=== PATIENT | male | born 1950 | race Caucasian/White ===

== ENCOUNTER → 2017-11-15 | Outpatient (CLI) | payer MEDICARE ==
[~2017-11-15] VITALS: Ht 182.9 cm; Wt 89.4 kg
[~2017-11-15] MED LIST: CATHETER FLUSH 10 ML SYR IV PRN; LISI40TA PO; METF-380 PO; REGADENOSON 0.4 MG/5 ML SYR (LEXISCAN) IV ONE; SIMV40TA4 PO
[2017-11-15 07:55] VITALS: BP 143/82
[2017-11-15 08:18] VITALS: BP 130/74
--- NOTE | 2017-11-20 15:29 | STRESS TEST ---
DATE OF SERVICE: 11/15/2017 RESTING AND POST REGADENOSON TECHNETIUM-99M TETROFOSMIN SPECT CT IMAGING ORDERING PHYSICIAN: Christianne Villanueva APRN PRIMARY CARE PHYSICIAN: Andreia Boyer APRN OTHER PHYSICIAN: Dr. Poole. CLINICAL DIAGNOSIS: Chest discomfort. Baseline images were carried out after injection of 10.91 mCi of technetium-99m Tetrofosmin. This was followed by 0.4 mg of regadenoson and 33 mCi of technetium-99m Tetrofosmin for stress imaging. The electrocardiogram showed sinus rhythm with isolated premature ventricular contractions. Early repolarization is seen on the electrocardiogram. The electrocardiogram did not change significantly with the regadenoson infusion. Review of images at rest and following stress indicates a basal inferior perfusion defect, which appears predominantly fixed. Gated images show basal inferior hypokinesis. Left ventricular ejection fraction is calculated to be 41%. CONCLUSIONS: 1. Basal inferior infarction with a small amount of frank-infarct ischemia suggested on this study. 2. Basal inferior hypokinesis. 3. Left ventricular ejection fraction is calculated to be of 45%. Job ID: [id number] DocumentID: [id number] Dictated Date: 11/20/2017 13:05:08 Senior Training Specialist Date: 11/20/2017 15:28:05 Dictated By: YENNI POOLE MD, MA, FACP, FACC,
== END ==
LOC: CARD 06:57
PROVIDERS: ATTEND Nurse Practitioner Family
DX: I10 Essential (primary) hypertension (principal); E11.9 Type 2 diabetes mellitus without complications; R07.89 Other chest pain; E78.5 Hyperlipidemia, unspecified; I77.89 Other specified disorders of arteries and arterioles
CPT/HCPCS: 78452; 93017

== ENCOUNTER → 2018-07-30 | Outpatient (CLI) | payer MEDICARE, OTHER ==
[~2018-07-30] MED LIST changes: -CATHETER FLUSH 10 ML SYR IV PRN; +IOHEXOL 350 MG/ML 100 ML (OMNIPAQUE 350) VIAL IV ONE; -LISI40TA PO; -METF-380 PO; +NS 100 ML (IVPB) BAG IV ONE; +RECEIVED CONTRAST (Hold Metformin) IV SCH; -REGADENOSON 0.4 MG/5 ML SYR (LEXISCAN) IV ONE; -SIMV40TA4 PO
[2018-07-30 11:12] LABS: BUN/CREATININE RATIO 21; CREATININE SERUM 1.15 MG/DL (0.60-1.30); GFR ESTIMATED > 60
--- NOTE | 2018-07-30 12:24 | Diagnostic Imaging Report ---
PROCEDURE: CT sinuses without contrast TECHNIQUE: Multiple contiguous axial images were obtained through the sinuses without the use of intravenous contrast. Coronal and sagittal reformations were then performed. INDICATION: Chronic sinusitis. COMPARISON: None. FINDINGS: Postoperative findings of bilateral maxillary antrostomies, ethmoidectomies and middle turbinectomies. There is mild mucosal thickening in the floor of the left maxillary sinus. The paranasal sinuses are otherwise clear. Moderate leftward bowing of the nasal septum with spur. No large periapical lucencies about the maxillary dentition. The mastoids and middle ears are clear. Skull base is intact. Normal alignment of the temporomandibular joints. IMPRESSION: Postoperative changes of bilateral maxillary antrostomies, middle turbinectomies and ethmoidectomies. There is mild residual mucosal thickening in the floor of the left maxillary sinus. The paranasal sinuses are otherwise clear. Dictated by: Dictated on workstation # [id number]
--- NOTE | 2018-07-30 12:49 | Diagnostic Imaging Report ---
PROCEDURE: CT neck soft tissue with contrast. TECHNIQUE: Multiple contiguous axial images were obtained through the neck after the administration of contrast. INDICATION: Parotid mass. FINDINGS: The previous CT neck exam of 08/05/2012 noted a 4 mm soft tissue mass along the posterior aspect of the left parotid gland. This is felt to be related to an intraparotid lymph node. Reportedly this lesion was subsequently biopsied on 08/27/2012. The results of the biopsy are not known to me. On this exam that nodule is again identified and does not appear to have changed significantly. The nodule is estimated to be approximately 5 mm. There is no other evidence for an intraparotid nodule on the left. There is also a small 5 mm nodule in the soft tissues adjacent to the right parotid gland. This was present on the prior exam and has not changed significantly. There are a few other small subcentimeter nodules on each side of the neck. There is no mass identified. There is a suggestion of a 13 mm nodule along the inferior pole of the right lobe of the thyroid. This was also present on the prior exam at which time it measured 11 mm. The relative stability of this finding over a nearly six year period would suggest it is a benign process. The lung apices and the intracranial contents, where visualized are unremarkable for an acute abnormality. The reconstructed sagittal images show that there is severe degenerative disc and bony disease at C4-5, C5-6 and C6-7. There also appears to be central stenosis at these three levels with the C6-7 level the most severely affected. IMPRESSION: 1. The small left intraparotid lymph node seen on the previous exam in 2012 is again evident and does not appear to have changed significantly. 2. There are a few other subcentimeter nodes on each side of the neck. These seem similar to the prior exam as well. 3. The low density nodule in the inferior pole of the right lobe of the thyroid noted on the prior exam is minimally larger on this study. This nodule is most likely a benign process however. 4. There severe degenerative disc and bony disease at C4-5, C5-6 and C6-7. Dictated by: Dictated on workstation # [id number]
== END ==
LOC: RAD 10:38
PROVIDERS: ATTEND Otolaryngology Otolaryngology/Facial Plastic Surgery
DX: E04.1 Nontoxic single thyroid nodule (principal); M89.9 Disorder of bone, unspecified; M50.321 Other cervical disc degeneration at C4-C5 level; J32.9 Chronic sinusitis, unspecified; K11.8 Other diseases of salivary glands; Z98.890 Other specified postprocedural states
CPT/HCPCS: 36415; 70486; 70491; 82565; 84520

== ENCOUNTER → 2021-11-08 | Outpatient (CLI) | payer MEDICARE ==
[~2021-11-08] VITALS: Ht 182 cm; Wt 84.0 kg
[~2021-11-08] MED LIST changes: +ASPI-586 PO; +ASPI-999 PO; +ASPI325T32 PO; +ATOR40TA PO; +CATHETER FLUSH 10 ML SYR IVP PRN; +CETI10TA49 PO; +CLOP75TA28 PO; +DEXT236S PO; -IOHEXOL 350 MG/ML 100 ML (OMNIPAQUE 350) VIAL IV ONE; +LISI40TA PO; +METF-380 PO; +METF-399 PO; +METO50TA7 PO; +MTP25TSR PO; -NS 100 ML (IVPB) BAG IV ONE; -RECEIVED CONTRAST (Hold Metformin) IV SCH; +REGADENOSON 0.4 MG/5 ML SYR (LEXISCAN) IV ONE; +SIMV20TA26 PO; +SIMV40TA4 PO
[2021-11-08 09:46] VITALS: BP 161/91
--- NOTE | 2021-11-10 13:23 | STRESS TEST ---
DATE OF SERVICE: 11/08/2021 RESTING AND POST REGADENOSON TECHNETIUM-99M TETROFOSMIN SPECT CT IMAGING ORDERING PHYSICIAN: Christianne Villanueva APRN PRIMARY PHYSICIAN: [facility]. CLINICAL DIAGNOSIS: Coronary artery disease. Baseline images were carried out after injection of 10.77 mCi of technetium-99m Tetrofosmin. This was followed by 0.4 mg regadenoson and 30.6 mCi of technetium-99m Tetrofosmin for stress imaging. The electrocardiogram showed sinus rhythm at baseline. It did not change significantly with the regadenoson infusion. The patient tolerated the procedure well. Review of images at rest and following stress indicates a predominantly fixed inferolateral perfusion defect. Gated images show inferolateral akinesis. Left ventricular ejection fraction is calculated to be 41%. CONCLUSIONS: 1. Inferolateral myocardial infarction with minimal frank-infarct ischemia. 2. Inferolateral akinesis. 3. Left ventricular ejection fraction is calculated to be 41%. Job ID: [id number] DocumentID: [id number] Dictated Date: 11/10/2021 09:48:34 Insulation Hoseman Date: 11/10/2021 13:22:14 Dictated By: YENNI POOLE MD, MA, FACP, FACC,
== END ==
LOC: CARD 08:15
PROVIDERS: ATTEND Nurse Practitioner Family
DX: I25.10 Atherosclerotic heart disease of native coronary artery without angina pectoris (principal)
CPT/HCPCS: 78452; 93017; A9502